=== PATIENT | male | born 1965 | race African-American/Black ===

== ENCOUNTER 2016-09-25 14:21 | Emergency (ER) | payer OTHER ==
[~2016-09-25] VITALS: Ht 188 cm; Wt 84.8 kg
--- NOTE | 2016-09-25 14:22 | NUR ---
pt ambulatory to er bed 09 c/o ruq abdominal x 5 days worst last night. c/o nausea no vomiting. moderate abdominal pain, states took anti spasmodic.gowned and placed on monitor. stable vitals. awaiting md epps.
--- NOTE | 2016-09-25 14:41 | NUR ---
dr garcia at bedside for eval.
[2016-09-25] MEDS ORDERED: IV NS 0.9% 1,000 ML ONE (14:44)
[2016-09-25] MEDS ORDERED: ONDANSETRON HCL/PF 4 MG/2 ML VIAL ONE (14:44)
[2016-09-25] MEDS ORDERED: IV SET PRIMARY 1 EA INFUS.SET MC ONE (14:44)
--- NOTE | 2016-09-25 14:51 | NUR ---
iv line started blood drawn and sent to lab.
[2016-09-25] MEDS: IV NS 0.9% 1,000 ML BAG IV ONE (14:53)
[2016-09-25 14:54] LABS: BASOPHILS # (AUTO) 0.1 /CMM (0.0-0.2); BASOPHILS % (AUTO) 0.9 % (0.0-2.0); EOSINOPHILS # (AUTO) 0.1 /CMM (0.0-0.7); HEMATOCRIT 49 % (39-51); HEMOGLOBIN 16.1 g/dL (13.5-17.5); LYMPHOCYTES % (AUTO) 33.2 % (20.0-44.0); MEAN CORPUSCULAR HEMOGLOBIN 28 PG (26.0-33.0); MEAN CORPUSCULAR HGB CONC 33 g/dl (31.0-36.0); MEAN CORPUSCULAR VOLUME 86 fL (80-96); MONOCYTES # (AUTO) 0.5 /CMM (0.1-1.30); MONOCYTES % (AUTO) 7.6 % (2.0-12.0); NEUTROPHILS # (AUTO) 3.4 /CMM (1.8-8.9); NEUTROPHILS % (AUTO) 56.3 % (43.0-81.0); PLATELET COUNT (AUTO) 202 /CMM (150-450); RDW COEFFICIENT OF VARIATION 12.4 (11.5-15.0); RED BLOOD CELL COUNT(AUTO) 5.67 MIL/uL (4.5-6.0); WHITE BLOOD COUNT (AUTO) 6.1 K/uL (4.3-11.0)
[2016-09-25] MEDS: ONDANSETRON HCL/PF 4 MG/2 ML VIAL IVP ONE (14:54)
--- NOTE | 2016-09-25 15:14 | NUR ---
[facility] WAS CALLED
[2016-09-25 15:28] LABS: CALCIUM, SERUM 9.1 mg/dL (8.5-10.1); CREATININE 1.2 mg/dL (0.6-1.3); POTASSIUM 4.2 mmol/L (3.5-5.1)
[2016-09-25 15:33] LABS: BILIRUBIN,DIRECT 0.1 mg/dL (0.0-0.2); BILIRUBIN,TOTAL 0.5 mg/dL (0.2-1.0); TOTAL PROTEIN, SERUM 7.3 g/dL (6.4-8.2)
--- NOTE | 2016-09-25 15:50 | NUR ---
u/s tech at bedside for gallbladder ultrasound.
--- NOTE | 2016-09-25 17:06 | NUR ---
Patient discharged to home in stable condition. Written and verbal after care instructions given. Patient verbalizes understanding of instruction.IV removed. Catheter intact and site benign. Pressure and 4x4 applied to site. No bleeding noted.
[2016-09-25 17:08] VITALS: BP 128/84
== END 2016-09-25 17:09 | disposition home or self-care (01) ==
LOC: ER 14:28
DX: D18.09 Hemangioma of other sites (principal); Z88.8 Allergy status to other drugs, medicaments and biological substances; F17.210 Nicotine dependence, cigarettes, uncomplicated
CPT/HCPCS: 36415; 76705-TC; 80048-TC; 80076-TC; 83690-TC; 85025-TC; A4606; J2405; J7030; Z7610